=== PATIENT | female | born 1955 | race Caucasian/White ===

== ENCOUNTER 2017-12-11 12:41 | Emergency (ER) | payer MEDICARE, OTHER, SELFPAY ==
[2017-12-11] VITALS (8 sets, daily range): BP systolic 96–146; BP diastolic 39–63; PULSE 85–97; RESP 16–22; TEMP 37.2–39.7; O2SAT 96–98; BMI 53.1
--- NOTE | 2017-12-11 12:57 | DI.RAD.S_ITS ---
PROCEDURE: XR CHEST 2V INDICATIONS: fever TECHNIQUE: 2 views of the chest were acquired. COMPARISON: [facility], CHEST 1 VIEW, 05/01/2017, 13:20. [facility], CHEST 1 VIEW, 07/24/2017, 9:09. FINDINGS: Surgical changes and devices: None. Lungs and pleura: No pleural effusions or pneumothorax. Lungs are clear. Mediastinum: Mediastinal contours are normal. Heart size is normal. Bones and chest wall: No suspicious bony abnormalities. Soft tissues appear unremarkable. IMPRESSION: No acute cardiopulmonary disease process. Dictated by: Lily Moreno MD, PhD on 12/11/2017 at 12:42 Approved by: Lily Moreno MD, PhD on 12/11/2017 at 12:43
[2017-12-11 13:19] LABS: Add Manual Diff / Slide Review NO; Basophils Percent Auto 0.6 % (0-2); Hematocrit 35.1 % (36-46); Hemoglobin 12.1 g/dL (12.0-16.0); Lymphocytes Percent Auto 7.9 % (25-40); Mean Corpuscular HGB Conc 34.3 % (30-36); Mean Corpuscular Hemoglobin 31.5 PG (26-34); Mean Corpuscular Volume 91.8 fL (80-100); Monocytes Percent Auto 6.7 % (3-14); Neutrophils Absolute Auto 9000 /uL (3000-5900); Neutrophils Percent Auto 84.8 % (50-75); Platelet Count 168 X10^3/uL (150-400); Red Blood Cell Count 3.82 X10^6/uL (4.0-5.2); Red Cell Distribution Width 13.5 % (11.6-14.8); White Blood Cell Count 10.6 X10^3/uL (4.5-11.0)
[2017-12-11 13:25] LABS: INR 1.2 (0.9-1.3); Prothrombin Time 13.3 SECONDS (10.1-12.7)
[2017-12-11 13:27] LABS: PTT Partial Thromboplastin Tim 26 SECONDS (26.4-36.2)
[2017-12-11] MEDS: SODIUM CHLORIDE 0.9% 1,000 ML 1000 ML IV ×4 (13:32→15:14)
--- NOTE | 2017-12-11 13:34 | ED_ITS ---
HPI - Fever General Chief Complaint: Fever Stated Complaint: RUNNING A FEVER FOR A FEW DAYS Time Seen by Provider: 12/11/17 12:57 Source: patient and family Mode of arrival: EMS Limitations: no limitations History of Present Illness HPI Narrative: 62F diabetic; seizure disorder on lamictal 300mg BID; asthma brought for weakness, fever measured 101F at home, and abdominal pain for last 3 days. Patient reports dysuria and abdominal pain. No seizure activity. PCP Dr. Mccann Related Data Home Medications Medication Instructions Recorded Confirmed lisinopril 20 mg PO QDAY #0 tab 04/24/13 12/11/17 oxybutynin chloride 10 mg PO QDAY #0 04/25/13 12/11/17 Advair HFA 1 puff INHALATION PRN PRN 12/11/17 12/11/17 aspirin 81 mg PO DAILY 12/11/17 12/11/17 febuxostat [Uloric] 40 mg PO DAILY 12/11/17 12/11/17 fluticasone 1 spray INTRANASAL PRN PRN 12/11/17 12/11/17 lamotrigine [Lamictal XR] 300 mg PO BID 12/11/17 12/11/17 levothyroxine 25 mcg PO DAILY 12/11/17 12/11/17 loratadine 10 mg PO DAILY 12/11/17 12/11/17 lorazepam [Ativan] 0.5 mg PO TIDP PRN 12/11/17 12/11/17 meclizine [Bonine] 25 mg PO Q8HP PRN 12/11/17 12/11/17 topiramate [Trokendi XR] 200 mg PO DAILY 12/11/17 12/11/17 Previous Rx's Medication Instructions Recorded levofloxacin [Levaquin] 750 mg PO Q24H 5 Days #5 tab 12/11/17 prednisone 60 mg PO DAILY #9 tab 12/11/17 Allergies Allergy/AdvReac Type Severity Reaction Status Date / Time carbamazepine [From TEGRETOL] Allergy Unknown BP GETS Verified 12/11/17 12:53 ELEVATED cefadroxil [From DURICEF] Allergy Unknown RASH Verified 12/11/17 12:53 clindamycin [CLINDAMYCIN] Allergy Unknown RASH Verified 12/11/17 12:53 phenytoin [From DILANTIN] Allergy Unknown HANG OVER Verified 12/11/17 12:53 HEADACHE Review of Systems Constitutional Reports fever(s) ENT Ears, Nose, Mouth, and Throat: Reports dry mouth Cardiovascular Denies chest pain, Denies irregular heart rhythm, Denies lightheadedness, Denies palpitations and Denies orthopnea Respiratory Reports cough and Reports wheezing Gastrointestinal Gastrointestinal: Reports abdominal pain, Denies diarrhea and Reports vomiting Genitourinary Reports dysuria Musculoskeletal Denies muscle weakness, Denies numbness and Denies tingling Integumentary/Breasts Denies pruritus, Denies erythema, Denies rash and Denies wounds Neurologic Denies numbness and Denies tingling Endocrine Denies palpitations Allergic/Immunologic Reports wheezing Exam Initial Vital Signs Initial Vital Signs: Vital Signs Temperature 103.4 F H 12/11/17 12:53 Pulse Rate 96 H 12/11/17 12:53 Respiratory Rate 22 12/11/17 12:53 Blood Pressure 136/44 H 12/11/17 12:53 Pulse Oximetry 97 12/11/17 12:53 Const General: cooperative and ill appearing Nutritional Appearance: obese morbidly obese Orientation: alert, awake, oriented x3 and not confused [facility] Head: normocephalic and atraumatic Ears: external ears normal and TM's normal bilaterally Nose: external nose normal and No nasal discharge Face and sinus: sinuses nontender, face symmetric, no sinus tenderness and No dry mucous membranes Mouth: oral mucosae normal and moist mucous membranes Teeth and gingiva: dentition normal Throat: tonsils normal and uvula midline Chest Chest: normal inspection of the chest Resp Auscultation: abnormal I/E ratio, rhonchi and wheezes Cardio Rhythm: regular rhythm Heart Sounds: S1 normal, S2 normal and no murmurs GI Inspection: non-distended Palpation: soft, no hepatosplenomegaly, No guarding, No pulsatile mass and No tender Auscultation: normal bowel sounds Skin General: no rashes or lesions noted, No jaundice and No petechiae Neuro General: alert, oriented x3, gait normal and no focal motor deficits Speech: speech normal Extrem General: full ROM, no clubbing, cyanosis or edema, no pedal edema and no calf tenderness Course Orders Ordered: ED Orders 12/11/17 12:57 XR chest 2V Stat EKG-12 Lead Stat 12/11/17 13:05 Basic Metabolic Panel Stat Bilirubin Total Stat Blood Culture Stat Complete Blood Count AUTO DIFF Stat Lactate (Lactic Acid) Stat Partial Thromboplastin Time Stat Procalcitonin Stat Prothrombin Time INR Stat 12/11/17 16:02 Urinalysis and Microscopic Stat Sodium Chloride (Normal Saline 0.9%) 4,218.42 mls @ 1,406.14 mls/hr 30 ml/kg infuse over 3 hr (4218.42 ml) IV CONT BEV Last Admin: 12/11/17 13:33 Dose: Not Given Levofloxacin (Levaquin) 750 mg in 150 mls @ 100 mls/hr IV NOW ONE Stop: 12/11/17 17:37 Last Admin: 12/11/17 16:20 Dose: 100 mls/hr Discontinued Medications Acetaminophen (Tylenol) 650 mg PO NOW ONE Stop: 12/11/17 15:57 Last Admin: 12/11/17 15:57 Dose: 650 mg Albuterol/Ipratropium (Duoneb) 3 ml INH NOW ONE Stop: 12/11/17 13:35 Last Admin: 12/11/17 13:37 Dose: 3 ml Albuterol/Ipratropium (Duoneb) 3 ml INH NOW ONE Stop: 12/11/17 13:35 Last Admin: 12/11/17 16:14 Dose: Not Given Albuterol/Ipratropium (Duoneb) 3 ml INH NOW ONE Stop: 12/11/17 13:46 Last Admin: 12/11/17 13:47 Dose: 3 ml Albuterol/Ipratropium (Duoneb) 3 ml INH NOW ONE Stop: 12/11/17 13:47 Last Admin: 12/11/17 13:47 Dose: 3 ml Sodium Chloride (Normal Saline 0.9%) 1,000 mls @ 1,000 mls/hr IV BOLUS ONE Stop: 12/11/17 14:30 Last Infusion: 12/11/17 15:09 Dose: 0 mls/hr Admin: 12/11/17 13:32 Dose: 1,000 mls/hr Sodium Chloride (Normal Saline 0.9%) 1,000 mls @ 1,000 mls/hr IV BOLUS ONE Stop: 12/11/17 14:30 Last Infusion: 12/11/17 14:45 Dose: 0 mls/hr Admin: 12/11/17 13:32 Dose: 1,000 mls/hr Sodium Chloride (Normal Saline 0.9%) 1,000 mls @ 1,000 mls/hr IV BOLUS ONE Stop: 12/11/17 14:30 Last Infusion: 12/11/17 15:57 Dose: 0 mls/hr Admin: 12/11/17 14:47 Dose: 1,000 mls/hr Ondansetron HCl 8 mg/ Sodium (Chloride) 54 mls @ 216 mls/hr IV NOW ONE Stop: 12/11/17 13:35 Last Infusion: 12/11/17 14:15 Dose: 0 mls/hr Admin: 12/11/17 13:54 Dose: 216 mls/hr Sodium Chloride (Normal Saline 0.9%) 1,000 mls @ 1,000 mls/hr IV BOLUS ONE Stop: 12/11/17 16:11 Last Admin: 12/11/17 15:14 Dose: 1,000 mls/hr Lamotrigine (Lamictal) 300 mg PO NOW ONE Stop: 12/11/17 13:35 Last Admin: 12/11/17 13:58 Dose: Not Given Methylprednisolone (Solu-Medrol 125 Mg Vial) 125 mg IV NOW ONE Stop: 12/11/17 13:35 Last Admin: 12/11/17 13:53 Dose: 125 mg Vital Signs - 8 hr 12/11/17 12:53 12/11/17 13:38 12/11/17 13:48 Temperature 103.4 F H Pulse Rate 96 H 91 H 94 H Respiratory Rate 22 22 18 Blood Pressure 136/44 H Blood Pressure [Left Arm] Pulse Oximetry 97 97 97 12/11/17 13:49 12/11/17 13:53 12/11/17 16:01 Temperature 99.0 F Pulse Rate 97 H 95 H Respiratory Rate 16 17 Blood Pressure Blood Pressure [Left Arm] 146/63 H Pulse Oximetry 98 97 12/11/17 16:05 Temperature Pulse Rate 94 H Respiratory Rate 20 Blood Pressure Blood Pressure [Left Arm] 96/39 L Pulse Oximetry 97 MDM - Fever Lab Data Result diagrams: 12/11/17 13:05 12/11/17 13:05 Lab Results 12/11/17 12/11/17 12/11/17 Range/Units 13:05 13:05 13:05 WBC 10.6 (4.5-11.0) X10^3/uL RBC 3.82 L (4.0-5.2) X10^6/uL Hgb 12.1 (12.0-16.0) g/dL Hct 35.1 L (36-46) % MCV 91.8 (80-100) fL MCH 31.5 (26-34) PG MCHC 34.3 (30-36) % RDW 13.5 (11.6-14.8) % Plt Count 168 (150-400) X10^3/uL Neut % (Auto) 84.8 H (50-75) % Lymph % (Auto) 7.9 L (25-40) % [place] % (Auto) 6.7 (3-14) % Eos % (Auto) 0.0 L (2-4) % Baso % (Auto) 0.6 (0-2) % Neut # (Auto) 9000 H (9359-1551) /uL PT 13.3 H (10.1-12.7) SECONDS INR 1.2 (0.9-1.3) APTT 26 L (26.4-36.2) SECONDS Sodium (137-145) mmol/L Potassium (3.4-5.1) mmol/L Chloride (98-107) mmol/L Carbon Dioxide (22-32) mmol/L BUN (7-17) mg/dL Creatinine (0.52-1.04) mg/dL Estimated GFR (>60) mL/min BUN/Creatinine Ratio (6-22) Glucose (80-110) mg/dL Lactate (0.7-2.1) mmol/L Calcium (8.4-10.2) mg/dL Total Bilirubin (0.2-1.3) mg/dL Procalcitonin 4.96 H (<0.5) ng/mL Urine Color Urine Appearance Urine pH (4.5-8.0) Ur Specific [place] (1.000-1.035) Urine Protein (Negative) Urine Glucose (UA) (Negative) g/dL Urine Ketones (NEGATIVE) Urine Occult Blood (Negative) Urine Nitrate (Negative) Urine Bilirubin (NEGATIVE) Urine Urobilinogen (0.2) E.U./dL Ur Leukocyte Esterase (NEGATIVE) Urine RBC (0-5/HPF) Urine WBC (0-5/HPF) Ur Squamous Epith Cells Urine Bacteria (None) Ur Culture Indicated? Micro UA Comment 12/11/17 12/11/17 12/11/17 Range/Units 13:05 13:05 16:02 WBC (4.5-11.0) X10^3/uL RBC (4.0-5.2) X10^6/uL Hgb (12.0-16.0) g/dL Hct (36-46) % MCV (80-100) fL MCH (26-34) PG MCHC (30-36) % RDW (11.6-14.8) % Plt Count (150-400) X10^3/uL Neut % (Auto) (50-75) % Lymph % (Auto) (25-40) % [place] % (Auto) (3-14) % Eos % (Auto) (2-4) % Baso % (Auto) (0-2) % Neut # (Auto) (1468-3577) /uL PT (10.1-12.7) SECONDS INR (0.9-1.3) APTT (26.4-36.2) SECONDS Sodium 137 (137-145) mmol/L Potassium 3.7 (3.4-5.1) mmol/L Chloride 104.0 (98-107) mmol/L Carbon Dioxide 22.0 (22-32) mmol/L BUN 20.0 H (7-17) mg/dL Creatinine 1.40 H (0.52-1.04) mg/dL Estimated GFR 38.1 L (>60) mL/min BUN/Creatinine Ratio 14.3 (6-22) Glucose 122 H (80-110) mg/dL Lactate 1.0 (0.7-2.1) mmol/L Calcium 8.9 (8.4-10.2) mg/dL Total Bilirubin 1.0 (0.2-1.3) mg/dL Procalcitonin (<0.5) ng/mL Urine Color Yellow Urine Appearance Clear Urine pH 6.0 (4.5-8.0) Ur Specific [place] 1.015 (1.000-1.035) Urine Protein 2+ H (Negative) Urine Glucose (UA) Negative (Negative) g/dL Urine Ketones Trace H (NEGATIVE) Urine Occult Blood 3+ H (Negative) Urine Nitrate Positive H (Negative) Urine Bilirubin Negative (NEGATIVE) Urine Urobilinogen 1.0 (0.2) E.U./dL Ur Leukocyte Esterase Trace H (NEGATIVE) Urine RBC 0-1/hpf (0-5/HPF) Urine WBC 10-30/hpf H (0-5/HPF) Ur Squamous Epith Cells 10-30 /hpf H Urine Bacteria Many (>30) H (None) Ur Culture Indicated? Cult not indicated Micro UA Comment Not Reportable ABG Data Interpretation: Patient: Luisa Byers [facility]#: [id number] : 5Acct:[id number] Age/Sex: 62 / FDate of Service: 12/11/17 Loc: ED Accession Number: [id number] Procedure: XR chest 2V Ordering Provider: Kelsey Stevens M.D. PROCEDURE: XR CHEST 2V INDICATIONS: fever TECHNIQUE: 2 views of the chest were acquired. COMPARISON: [facility], , CHEST 1 VIEW, 05/01/2017, 13:20. [facility], , CHEST 1 VIEW, 07/24/2017, 9:09. FINDINGS: Surgical changes and devices: None. Lungs and pleura: No pleural effusions or pneumothorax. Lungs are clear. Mediastinum: Mediastinal contours are normal. Heart size is normal. Bones and chest wall: No suspicious bony abnormalities. Soft tissues appear unremarkable. IMPRESSION: No acute cardiopulmonary disease process. Dictated by: Lily Moreno MD, PhD on 12/11/2017 at 12:42 Approved by: Lily Moreno MD, PhD on 12/11/2017 at 12:43 ECG Data Interpretation: Sinus Rhythm; HR [address]/Tw changes Normal [place] intervals No ectopy MDM Narrative Medical decision making narrative: Sepsis protocol initiated due to febrile presentation. Labs reviewed, patient does not have an elevated WBC. No significant lab abnormalities. Her Cr is slightly above her baseline from prior visits, not meeting MELA criteria. Lactate WNL. Patient has baseline BP ~100mmhg systolic. HR no longer tachy. Patient ambulated for CXR and to restroom. UTI likely despite contaminated urine. Will treat with levaquin due to cephalosporin allergy. Stable for outpatient management. Discharge Plan Departure Patient Disposition: Home, Self-Care Clinical Impression: Acute UTI Instructions: DI for Urinary Tract Infection (UTI) Prescriptions: New levofloxacin [Levaquin] 750 mg tablet 750 mg PO Q24H 5 Days Qty: 5 RF: 0 prednisone 20 mg tablet 60 mg PO DAILY Qty: 9 RF: 0 No Action lisinopril 20 MG tablet 20 mg PO QDAY Qty: 0 RF: 0 oxybutynin chloride 10 MG tablet extended release 24hr 10 mg PO QDAY Qty: 0 RF: 0 Advair HFA 1 puff Inhalation PRN PRN (Reason: Shortness Of Breath) RF: 0 aspirin 81 mg Tablet,Delayed Release (Dr/Ec) 81 mg PO DAILY RF: 0 levothyroxine 25 mcg tablet 25 mcg PO DAILY RF: 0 fluticasone 50 mcg/actuation spray,suspension 1 spray Intranasal PRN PRN (Reason: Sinus Symptoms) RF: 0 loratadine 10 mg tablet 10 mg PO DAILY RF: 0 febuxostat [Uloric] 40 mg tablet 40 mg PO DAILY RF: 0 lamotrigine [Lamictal XR] 300 mg tablet extended release 24hr 300 mg PO BID RF: 0 topiramate [Trokendi XR] 200 mg capsule,extended release 24hr 200 mg PO DAILY RF: 0 lorazepam [Ativan] 0.5 MG tablet 0.5 mg PO TIDP PRN (Reason: Anxiety) RF: 0 meclizine [Bonine] 25 MG tablet,chewable 25 mg PO Q8HP PRN (Reason: Dizziness) RF: 0 Referrals: Marichuy Underwood MD [Primary Care Provider] -
[2017-12-11 13:35] LABS: BUN Creatinine Ratio 14.3 (6-22); Calcium 8.9 mg/dL (8.4-10.2); Estimated Glomerular Filt Rate 38.1 mL/min (>60); Glucose 122 mg/dL (80-110); HEMOLYSIS < 15 (0-50); Potassium 3.7 mmol/L (3.4-5.1); Sodium 137 mmol/L (137-145)
[2017-12-11] MEDS: ALBUTEROL/IPRATROPIUM 3 ML AMPUL INH ×3 (13:37→13:47)
[2017-12-11 13:50] LABS: Procalcitonin 4.96 ng/mL (<0.5)
[2017-12-11] MEDS: methylPREDNISolone 125 MG/2 ML VIAL IV (13:53)
[2017-12-11] MEDS: ONDANSETRON 8 MG in SODIUM CHLORIDE 0.9% 50 ML 216 ML IV (13:54)
[2017-12-11] MEDS: ACETAMINOPHEN 325 MG TABLET 650 MG PO (15:57)
[2017-12-11 16:04] LABS: Appearance Urine UA CLEAR; Bilirubin Urine UA NEGATIVE (NEGATIVE); Color Urine UA YELLOW; Glucose Urine UA NEGATIVE (Negative); Ketones Urine UA TRACE (NEGATIVE); Leukocyte Esterase Urine UA TRACE (NEGATIVE); Nitrite Urine UA POSITIVE (Negative); Occult Blood Urine UA 3+ (Negative); Protein Urine UA 2+ (Negative); Specific Gravity Urine UA 1.015 (1.000-1.035)
[2017-12-11 16:12] LABS: Bacteria Urine Many (>30); RBC Urine 0-1/HPF (0-5/HPF); Squamous Epithelial Cell Urine 10-30 /HPF; WBC Urine 10-30/HPF (0-5/HPF)
[2017-12-11 16:13] LABS: Culture Indicated Urine Cult Not Indicated
[2017-12-11] MEDS: levoFLOXacin 750 MG/150 ML PIGGYBACK 100 MG IV (16:20)
== END 2017-12-11 17:59 | disposition home or self-care (01) ==
PROVIDERS: Emergency Provider Student in an Organized Health Care Education/Training Program; Family Provider Internal Medicine; PCP Internal Medicine
DX: N39.0 Urinary tract infection, site not specified (principal)
CPT/HCPCS: 36591; 71046; 80048; 81001; 82247; 83605; 84145; 85025; 85610; 85730; 87040; 93005; 94640; 96361; 96365; 96375; 99285; J1956; J2405; J2930

== ENCOUNTER 2019-03-29 07:18 | Emergency (ER) | payer MEDICARE, OTHER, SELFPAY ==
[2019-03-29 07:30] VITALS: BP 147/62; PULSE 85; RESP 13; TEMP 36.4; O2SAT 99
--- NOTE | 2019-03-29 07:49 | DI.US.S_ITS ---
PROCEDURE: US ABDOMEN LIMITED INDICATIONS: RUQ TECHNIQUE: Real-time focused scanning was performed of the abdomen, with image documentation. COMPARISON: None. FINDINGS: Liver is enlarged measuring 21.7 cm in length. There is diffuse increased hepatic echotexture consistent with hepatic fatty infiltration. Gallbladder is normal. No gallstones, gall bladder wall thickening or pericholecystic impaction. Common bile duct is normal in caliber measuring 3.8 cm in diameter. The visualized pancreas is normal. IMPRESSION: 1. Diffusely increased hepatic echotexture. This finding is most likely secondary to hepatic fatty infiltration although other hepatocellular disease may have a similar appearance. Recommend clinical correlation. 2. Normal gallbladder. No gallstones or ultrasound findings to suggest acute cholecystitis. 3. Normal caliber of common bile duct. Dictated by: Dayo Kuhn M.D. on 03/29/2019 at 8:16 Approved by: Dayo Kuhn M.D. on 03/29/2019 at 8:19
[2019-03-29 08:07] LABS: Add Manual Diff / Slide Review NO; Basophils Absolute Auto 100 /uL (0-100); Eosinophils Absolute Auto 300 /uL (0-450); Eosinophils Percent Auto 4.1 % (2-4); Hematocrit 39.1 % (36-46); Hemoglobin 13.2 g/dL (12.0-16.0); Lymphocytes Absolute Auto 1400 /uL (1100-4500); Lymphocytes Percent Auto 20.3 % (25-40); Mean Corpuscular HGB Conc 33.7 % (30-36); Mean Corpuscular Hemoglobin 33.1 PG (26-34); Mean Corpuscular Volume 98.3 fL (80-100); Monocytes Absolute Auto 400 /uL (0-900); Monocytes Percent Auto 5.3 % (3-14); Neutrophils Absolute Auto 4700 /uL (1500-7000); Neutrophils Percent Auto 69.3 % (50-75); Platelet Count 164 X10^3/uL (150-400); Red Blood Cell Count 3.98 X10^6/uL (4.0-5.2); Red Cell Distribution Width 13.1 % (11.6-14.8); White Blood Cell Count 6.7 X10^3/uL (4.5-11.0)
[2019-03-29] MEDS: KETOROLAC 60 MG/2 ML VIAL 15 MG IV (08:07)
[2019-03-29 08:16] LABS: Alanine Aminotransferase 89 IU/L (9-52); Albumin 4.1 g/dL (3.5-5.0); Albumin Globulin Ratio 1.1 (1.0-2.8); Alkaline Phosphatase 54 U/L (38-126); Aspartate Aminotransferase 94 IU/L (14-36); Bilirubin Total 0.9 mg/dL (0.2-1.3); Blood Urea Nitrogen 23 mg/dL (7-17); Calcium 9.3 mg/dL (8.4-10.2); Carbon Dioxide 25 mmol/L (22-32); Chloride 108 mmol/L (98-107); Estimated Glomerular Filt Rate 55.8 mL/min (>60); Globulin 3.6 g/dL (1.7-4.1); Glucose 117 mg/dL (80-110); Lipase 143 U/L (23-300); Sodium 140 mmol/L (137-145); Total Protein 7.7 g/dL (6.3-8.2)
[2019-03-29 08:17] LABS: HEMOLYSIS 157 (0-50); Potassium 4.8 mmol/L (3.4-5.1)
--- NOTE | 2019-03-29 08:23 | ED.ABDPAIN ---
HPI - Abdominal Pain General Chief Complaint: Abdominal Pain Stated Complaint: right sided abdominal pain Time Seen by Provider: 03/29/19 07:39 Source: patient Mode of arrival: ambulatory Limitations: no limitations History of Present Illness HPI narrative: Patient is a 64-year-old female with history of morbid obesity and epilepsy presenting with right upper quadrant pain. She says it started early this morning woke her from her sleep it has been fairly constant. Nonradiating. She has not taken anything for pain she sometimes feels nauseous but has no vomiting. MD complaint: abdominal pain Onset (ago): hour(s) Pain Consistency: constant Location: RUQ Severity: moderate Quality: aching Radiation: none Migration to: no migration Relieving factors: nothing Exacerbating factors: nothing Related Data Home Medications Medication Instructions Recorded Confirmed lisinopril 20 mg PO DAILY #0 tab 04/24/13 03/29/19 Advair HFA 1 puff INHALATION PRN PRN 12/11/17 12/11/17 aspirin 81 mg PO DAILY 12/11/17 12/11/17 febuxostat [Uloric] 40 mg PO DAILY 12/11/17 03/29/19 fluticasone propionate 1 spray INTRANASAL PRN PRN 12/11/17 12/11/17 lamotrigine [Lamictal XR] 300 mg PO BID 12/11/17 03/29/19 loratadine 10 mg PO DAILY 12/11/17 03/29/19 lorazepam [Ativan] 0.5 mg PO TIDP PRN 12/11/17 12/11/17 meclizine [Bonine] 25 mg PO Q8HP PRN 12/11/17 12/11/17 topiramate [Trokendi XR] 200 mg PO DAILY 12/11/17 03/29/19 colchicine [Colcrys] 0.6 mg PO DAILY 03/29/19 03/29/19 levothyroxine 50 mcg PO DAILY 03/29/19 03/29/19 oxybutynin chloride 10 mg PO DAILY 03/29/19 03/29/19 Previous Rx's Medication Instructions Recorded prednisone 60 mg PO DAILY #9 tab 12/11/17 ondansetron 4 mg PO Q6-8H PRN #10 tab 03/29/19 Allergies Allergy/AdvReac Type Severity Reaction Status Date / Time carbamazepine [From TEGRETOL] Allergy Unknown BP GETS Verified 12/11/17 12:53 ELEVATED cefadroxil [From DURICEF] Allergy Unknown RASH Verified 12/11/17 12:53 clindamycin [CLINDAMYCIN] Allergy Unknown RASH Verified 12/11/17 12:53 phenytoin [From DILANTIN] Allergy Unknown HANG OVER Verified 12/11/17 12:53 HEADACHE Review of Systems Review of Systems Narrative: GENERAL: Denies chills, fatigue, malaise, fever, sweats, travel HEENT: Denies sinus pain, ear pain, sore throat, difficulty swallowing, neck pain RESPIRATORY: Denies dyspnea, cough, wheezing, hemoptysis, sputum. CARDIOVASCULAR: Denies chest pain, palpitations, orthopnea, edema GASTROINTESTINAL: See HPI : Denies dysuria, frequency, incontinence, hematuria, urinary retention, flank pain. MUSCULOSKELETAL: Denies weakness, joint pain, or bony pain SKIN: No rash, no erythema, no pruritus NEUROLOGIC: Denies weakness, dizziness, headache, numbness, change in speech, confusion PSYCHIATRIC: No concerning psychosocial issues. 12 point review of systems is negative except for those stated above and HPI [facility] Medical History Epilepsy (Acute) Morbid obesity (Acute) Social History (Updated 03/29/19 @ 08:28 by Juana Enciso DO) Smoking Status: Never smoker alcohol intake: never substance use type: does not use Social History Smoking Status: Never smoker alcohol intake: never substance use type: does not use Exam Initial Vital Signs Initial Vital Signs: Vital Signs Temperature 97.6 F 03/29/19 07:30 Pulse Rate 85 03/29/19 07:30 Respiratory Rate 13 03/29/19 07:30 Blood Pressure 147/62 H 03/29/19 07:30 Pulse Oximetry 99 03/29/19 07:30 GENERAL: Morbidly obese female alert and oriented and in no acute distress. HEENT: Head atraumatic,EOMI, pupils reactive, face symmetric, moist mucous membranes CARDIOVASCULAR: Regular rate and rhythm without murmurs, rubs or gallops. RESPIRATORY: Breath sounds equal bilaterally, no wheezes rales or rhonchi. ABDOMEN: Soft, mild tenderness in right upper quadrant. Normoactive bowel sounds all 4 quadrants. No guarding or rebound. : No CVA tenderness EXTREMITIES: Normal range of motion, no clubbing or edema. Neurovascularly intact NEUROLOGICAL: Alert and oriented x4.Normal gait and speech. Cranial nerves II through XII grossly intact. SKIN: Warm, dry, no laceration, no petechiae, no rashes or lesions. Course Orders Ordered: ED Orders 03/29/19 07:49 US abdomen limited Stat 03/29/19 07:50 Complete Blood Count AUTO DIFF Stat Comprehensive Metabolic Panel Stat Lipase Stat 03/29/19 08:52 CT abdomen pelvis w con Stat Discontinued Medications Ketorolac Tromethamine (Toradol) 15 mg IV NOW ONE Stop: 03/29/19 07:50 Last Admin: 03/29/19 08:07 Dose: 15 mg Documented by: RACHEL Vital Signs Vital signs: Vital Signs - 8 hr 03/29/19 07:30 03/29/19 10:11 Temperature 97.6 F Pulse Rate 85 62 Respiratory Rate 13 15 Blood Pressure 147/62 H Blood Pressure [Left Wrist] 131/70 Pulse Oximetry 99 98 MDM - Abdominal Pain Lab Data Attestation: I reviewed the patient's lab results. Result diagrams: 03/29/19 07:50 03/29/19 07:50 Labs: Lab Results 03/29/19 03/29/19 Range/Units 07:50 07:50 WBC 6.7 (4.5-11.0) X10^3/uL RBC 3.98 L (4.0-5.2) X10^6/uL Hgb 13.2 (12.0-16.0) g/dL Hct 39.1 (36-46) % MCV 98.3 (80-100) fL MCH 33.1 (26-34) PG MCHC 33.7 (30-36) % RDW 13.1 (11.6-14.8) % Plt Count 164 (150-400) X10^3/uL Neut % (Auto) 69.3 (50-75) % Lymph % (Auto) 20.3 L (25-40) % [place] % (Auto) 5.3 (3-14) % Eos % (Auto) 4.1 H (2-4) % Baso % (Auto) 1.0 (0-2) % Neut # (Auto) 4700 (9387-3716) /uL Lymph # (Auto) 1400 (3390-0758) /uL [place] # (Auto) 400 (0-900) /uL Eos # (Auto) 300 (0-450) /uL Baso # (Auto) 100 (0-100) /uL Sodium 140 (137-145) mmol/L Potassium 4.8 (3.4-5.1) mmol/L Chloride 108 H (98-107) mmol/L Carbon Dioxide 25 (22-32) mmol/L BUN 23 H (7-17) mg/dL Creatinine 1.00 (0.52-1.04) mg/dL Estimated GFR 55.8 L (>60) mL/min BUN/Creatinine Ratio 23.0 H (6-22) Glucose 117 H (80-110) mg/dL Calcium 9.3 (8.4-10.2) mg/dL Total Bilirubin 0.9 (0.2-1.3) mg/dL AST 94 H (14-36) IU/L ALT 89 H (9-52) IU/L Alkaline Phosphatase 54 (38-126) U/L Total Protein 7.7 (6.3-8.2) g/dL Albumin 4.1 (3.5-5.0) g/dL Globulin 3.6 (1.7-4.1) g/dL Albumin/Globulin Ratio 1.1 (1.0-2.8) Lipase 143 (23-300) U/L Imaging Data CT scan - abdomen: Radiologist's impression: PROCEDURE: CT ABDOMEN PELVIS W CON INDICATIONS: right sided pain TECHNIQUE: After the administration of intravenous contrast, 5 mm thick sections acquired from the diaphragm to the symphysis. 5 mm coronal and sagittal reformats were acquired. For radiation dose reduction, the following was used: automated exposure control, adjustment of mA and/or kV according to patient size. COMPARISON: [facility], , US ABDOMEN LIMITED, 03/29/2019, 8:03. FINDINGS: Image quality: Excellent. ABDOMEN: Lung bases: There is a 3 mm nodule in the right middle lobe (series 3 image 1) and a 5 mm nodule in the right lower lobe (series 3 image 11). Heart size is normal. Mild concentric thickening in the distal esophagus at the GE junction. Solid organs: Liver is enlarged measuring 21.5 cm in length and demonstrates diffuse fatty infiltration. Gallbladder is normal. Biliary system is non dilated. Pancreas enhances normally. Spleen is normal in size and enhancement. There is a 1.2 cm splenule in the splenic hilum. No adrenal nodules. Kidneys demonstrate normal size and enhancement, without hydronephrosis. Peritoneum and bowel: There are scattered colonic diverticula. No CT findings to suggest acute diverticulitis. Appendix is normal. Bowel loops demonstrate normal wall thickness and caliber. No free fluid or air. Nodes and vessels: No retroperitoneal or mesenteric adenopathy by size criteria. Aorta and inferior vena cava are normal in size. Miscellaneous: No ventral hernias. PELVIS: Genitourinary: Bladder wall thickness is normal. Uterus and ovaries are unremarkable. No pathological free fluid in pelvis. Miscellaneous: No inguinal hernias or adenopathy. Bones: No suspicious bony lesions. No vertebral body compression fractures. Degenerative changes in the lower thoracic and lumbar spine. IMPRESSION: 1. Mild hepatomegaly and hepatic steatosis. 2. Diverticulosis without acute diverticulitis. 3. Mild concentric thickening at the gastroesophageal junction. If clinically indicated, double contrast esophagram or EGD may be obtained for further evaluation. 4. Normal appendix. 5. Small pulmonary nodules in the right lung base. Please see enclosed followup recommendations Fleischner Society criteria for SOLID lung nodule followup. Nodule size (mm)Low-risk patientHigh-risk patient?4No follow-up neededFollow-up at 12 mo; if no change, no further follow-up>[id number] CT at 12 mo; if no change, no further follow-up needed.Initial follow-up CT at 6-12 mo, then 18-24 mo if no change. >6-8Initial follow-up CT at 6-12 mo, then 18-24 mo if no change. Initial follow-up CT at 3-6 mo, then 9-12 mo and 24 mo if no change. >8Follow-up CT at 3, 9, 24 mo. Or PET and/or biopsy.Same as for low-risk pts. Fleischner Society criteria for SUB-SOLID lung nodule followup. Solitary pure ground-glass nodules5 mm or lessNo followup needed. >5 mm3 mo follow-up CT to confirm persistence. Then annual CT for 3 years. Part-solid nodules3 mo follow-up CT to confirm persistence. If persistent with solid component <5 mm, annual CT for at least 3 years. If solid component is 5 mm or more, biopsy or surgical resection. Consider PET-CT for lesions > 10 mm. Multiple sub-solid nodulesPure ground glass nodules [address] at 2 and 4 years. Pure ground glass nodules >5 mm without dominant lesion. [address] to confirm persistence, then annual followup CT for at least 3 years. Dominant nodule(s) with part-solid or solid component. [address] to confirm persistence. If persistent, consider biopsy or surgical resection, gal if lesions have >5 mm solid component. Dictated by: Dayo Kuhn M.D. on 03/29/2019 at 8:05 US - abdomen: Radiologist's impression: PROCEDURE: US ABDOMEN LIMITED INDICATIONS: RUQ TECHNIQUE: Real-time focused scanning was performed of the abdomen, with image documentation. COMPARISON: None. FINDINGS: Liver is enlarged measuring 21.7 cm in length. There is diffuse increased hepatic echotexture consistent with hepatic fatty infiltration. Gallbladder is normal. No gallstones, gall bladder wall thickening or pericholecystic impaction. Common bile duct is normal in caliber measuring 3.8 cm in diameter. The visualized pancreas is normal. IMPRESSION: 1. Diffusely increased hepatic echotexture. This finding is most likely secondary to hepatic fatty infiltration although other hepatocellular disease may have a similar appearance. Recommend clinical correlation. 2. Normal gallbladder. No gallstones or ultrasound findings to suggest acute cholecystitis. 3. Normal caliber of common bile duct. Dictated by: Dayo Kuhn M.D. on 03/29/2019 at 8:16 MDM Narrative Medical decision making narrative: The patient's pain seems to be well controlled. Blood work reassuring ultrasound and CT are negative. She has absolutely no chest pain as seems to be right lateral pain. She is moving today might be related to nerves. On clear what source of the abdominal pain is but she feels comfortable going back home. Discharge Plan Departure Patient Disposition: Home Clinical Impression: Abdominal pain Qualifiers: Abdominal location: right upper quadrant Qualified Code(s): R10.11 - Right upper quadrant pain Discharge Date/Time: 03/29/19 10:30 Instructions: DI for Abdominal Pain-Adult Activity Restrictions/Additional Instructions: *You have been diagnosed with abdominal pain *What to do: Increase activity as tolerated. Today blood work, ultrasound and CAT scan in or any abnormality. *Continue to take medications as directed Tylenol if needed for pain take as directed *Follow up with your primary care provider in 2-3 days *Return to ER if you should have increasing abdominal pain chest pain, or any new, worsening or concerning symptoms Prescriptions: New ondansetron 4 mg tablet,disintegrating 4 mg PO Q6-8H PRN (Reason: nausea and vomiting) Qty: 10 RF: 0 No Action lisinopril 20 MG tablet 20 mg PO DAILY Qty: 0 RF: 0 Advair HFA 1 puff Inhalation PRN PRN (Reason: Shortness Of Breath) RF: 0 aspirin 81 mg Tablet,Delayed Release (Dr/Ec) 81 mg PO DAILY RF: 0 fluticasone propionate 50 mcg/actuation spray,suspension 1 spray Intranasal PRN PRN (Reason: Sinus Symptoms) RF: 0 loratadine 10 mg tablet 10 mg PO DAILY RF: 0 Uloric 40 mg tablet 40 mg PO DAILY RF: 0 lamotrigine [Lamictal XR] 300 mg tablet extended release 24hr 300 mg PO BID RF: 0 Trokendi XR 200 mg capsule,extended release 24hr 200 mg PO DAILY RF: 0 lorazepam [Ativan] 0.5 MG tablet 0.5 mg PO TIDP PRN (Reason: Anxiety) RF: 0 meclizine [Bonine] 25 MG tablet,chewable 25 mg PO Q8HP PRN (Reason: Dizziness) RF: 0 prednisone 20 mg tablet 60 mg PO DAILY Qty: 9 RF: 0 oxybutynin chloride 10 mg tablet extended release 24hr 10 mg PO DAILY RF: 0 levothyroxine 50 mcg tablet 50 mcg PO DAILY RF: 0 colchicine [Colcrys] 0.6 mg tablet 0.6 mg PO DAILY RF: 0
--- NOTE | 2019-03-29 08:52 | DI.CT.S_ITS ---
PROCEDURE: CT ABDOMEN PELVIS W CON INDICATIONS: right sided pain TECHNIQUE: After the administration of intravenous contrast, 5 mm thick sections acquired from the diaphragm to the symphysis. 5 mm coronal and sagittal reformats were acquired. For radiation dose reduction, the following was used: automated exposure control, adjustment of mA and/or kV according to patient size. COMPARISON: [facility], , ABDOMEN LIMITED, 03/29/2019, 8:03. FINDINGS: Image quality: Excellent. ABDOMEN: Lung bases: There is a 3 mm nodule in the right middle lobe (series 3 image 1) and a 5 mm nodule in the right lower lobe (series 3 image 11). Heart size is normal. Mild concentric thickening in the distal esophagus at the GE junction. Solid organs: Liver is enlarged measuring 21.5 cm in length and demonstrates diffuse fatty infiltration. Gallbladder is normal. Biliary system is non dilated. Pancreas enhances normally. Spleen is normal in size and enhancement. There is a 1.2 cm splenule in the splenic hilum. No adrenal nodules. Kidneys demonstrate normal size and enhancement, without hydronephrosis. Peritoneum and bowel: There are scattered colonic diverticula. No CT findings to suggest acute diverticulitis. Appendix is normal. Bowel loops demonstrate normal wall thickness and caliber. No free fluid or air. Nodes and vessels: No retroperitoneal or mesenteric adenopathy by size criteria. Aorta and inferior vena cava are normal in size. Miscellaneous: No ventral hernias. PELVIS: Genitourinary: Bladder wall thickness is normal. Uterus and ovaries are unremarkable. No pathological free fluid in pelvis. Miscellaneous: No inguinal hernias or adenopathy. Bones: No suspicious bony lesions. No vertebral body compression fractures. Degenerative changes in the lower thoracic and lumbar spine. IMPRESSION: 1. Mild hepatomegaly and hepatic steatosis. 2. Diverticulosis without acute diverticulitis. 3. Mild concentric thickening at the gastroesophageal junction. If clinically indicated, double contrast esophagram or EGD may be obtained for further evaluation. 4. Normal appendix. 5. Small pulmonary nodules in the right lung base. Please see enclosed followup recommendations Fleischner Society criteria for SOLID lung nodule followup. Nodule size (mm)Low-risk patientHigh-risk patient?4No follow-up neededFollow-up at 12 mo; if no change, no further follow-up>[id number] CT at 12 mo; if no change, no further follow-up needed.Initial follow-up CT at 6-12 mo, then 18-24 mo if no change. >6-8Initial follow-up CT at 6-12 mo, then 18-24 mo if no change. Initial follow-up CT at 3-6 mo, then 9-12 mo and 24 mo if no change. >8Follow-up CT at 3, 9, 24 mo. Or PET and/or biopsy.Same as for low-risk pts. Fleischner Society criteria for SUB-SOLID lung nodule followup. Solitary pure ground-glass nodules5 mm or lessNo followup needed. >5 mm3 mo follow-up CT to confirm persistence. Then annual CT for 3 years. Part-solid nodules3 mo follow-up CT to confirm persistence. If persistent with solid component <5 mm, annual CT for at least 3 years. If solid component is 5 mm or more, biopsy or surgical resection. Consider PET-CT for lesions > 10 mm. Multiple sub-solid nodulesPure ground glass nodules [address] at 2 and 4 years. Pure ground glass nodules >5 mm without dominant lesion. [address] to confirm persistence, then annual followup CT for at least 3 years. Dominant nodule(s) with part-solid or solid component. [address] to confirm persistence. If persistent, consider biopsy or surgical resection, gal if lesions have >5 mm solid component. Dictated by: Dayo Kuhn M.D. on 03/29/2019 at 8:05 Approved by: Dayo Kuhn M.D. on 03/29/2019 at 8:14
[2019-03-29 10:11] VITALS: BP 131/70; PULSE 62; RESP 15; O2SAT 98
== END 2019-03-29 10:30 | disposition home or self-care (01) ==
PROVIDERS: Emergency Provider Emergency Medicine; Family Provider Internal Medicine
DX: R10.11 Right upper quadrant pain (principal)
CPT/HCPCS: 36591; 74177; 76705; 80053; 83690; 85025; 96374; 99282; 99285; J1885; Q9967